=== PATIENT | male | born 1990 | race Caucasian/White ===

== ENCOUNTER 2016-12-15 23:30 | Emergency (ER) | payer SELFPAY ==
[2016-12-15 23:40] VITALS: BP 146/95
[2016-12-16] MEDS ORDERED: ACETAMINOPHEN 500 MG TABLET PO ONE (00:28)
--- NOTE | 2016-12-16 00:28 | ERNOTE ---
Upper Extremity HPI - Narrative Date of Service: 12/16/16 - General Extremities Pain Location: forearm: right Time Seen by Provider: 12/16/16 00:19 Source: patient Exam Limitations: no limitations - Immun/Allergies/Home Medications Immunizations: IMMUNIZATION HX Immunizations Up to Date Yes History of Influenza Vaccine No Hx Pneumococcal Vaccination No Allergies/Adverse Reactions: Allergies Allergy/AdvReac Type Severity Reaction Status Date / Time No Known Allergies Allergy Verified 12/15/16 23:40 Home Medications: HOME MEDICATIONS Naproxen [Naprosyn] 500 mg PO BID PRN #30 tablet 12/16/16 [Last Taken Unknown] - History of Present Illness Narrative: 26 year old that complaints of right forearm numbness and pain with extension of the digits. Typically plays video games for several hours when the pain started. Also complaints of a "lump" under his right testicle. Occurred: just prior to arrival Location of Incident: home Severity: severe Method of Injury: Reports: sports injury Modifying Factors - (Improves): Reports: rest Modifying Factors - (Worsens): Reports: movement Associated Symptoms: Reports: loss of power (rt arm) - forearm Other Injuries: Reports: none Review of Systems - Review of Systems Constitutional: Present: no symptoms reported EYE: Present: no symptoms reported ENT: Present: no symptoms reported Respiratory: Present: no symptoms reported Cardiology: Present: no symptoms reported Gastrointestinal/Abdominal: Present: no symptoms reported Genitourinary: Present: See HPI Musculoskeletal: Present: See HPI Skin: Present: no symptoms reported Neurological: Present: no symptoms reported Endocrine: Present: no symptoms reported - Patient's Past Medical History Patient History - Medical: No pertinent hx Patient History - Cardiac/Respiratory: No pertinent hx Patient History - Cancer: No Hx of Cancer Patient History - Surgical Procedures: Other Patient History - Other: None - Social History Living Situations: home Smoking Status: Current every day smoker Drug Use: marijuana - Immunizations Immunizations Up to Date: Yes Hx Pneumococcal Vaccination: No History of Influenza Vaccine: No Physical Exam - Physical Exam General Appearance: Present: alert Eye Exam: Normal inspection: bilateral Ears, Nose, Throat: Present: normal ENT inspection Neck: Present: normal inspection Respiratory: Present: no respiratory distress Cardiovascular/Chest: Present: regular rate, rhythm Gastrointestinal/Abdominal: Present: nontender, nondistended, soft Male Genitals Exam: Present: normal genitalia, other - small draining papulae at the posterior aspect of the right scrotum. Back Exam: Present: normal inspection Extremity Exam: Present: decreased range of motion - attempts at extending digits cuases pain at the extensor musculature., extremity edema - minimal at the extensor compartment, other - mild tenderness at the extensor compartment. NV intact distally. Neurological Exam: Present: alert, oriented, normal mood/affect ED Progress - Vital Signs Patient's Vital Signs:: I have reviewed the patient's vital signs. Vital Signs: Vital Signs 12/15/16 23:33 Temperature 36.3 C L Pulse Rate 109 H Respiratory 16 Rate Blood Pressure 146/95 O2 Sat by Pulse 96 Oximetry - Progress/Reassessment Chief Complaint: Upper Extremity Injury/Problem Departure Clinical Impression: Overuse injury, Papule - Departure Disposition: Home self-care Condition: Fair Instructions: Tendinitis and Tenosynovitis-SportsMed Print Language: [place] Island[place] Additional Instructions: Refrain from video games. Ice packs to the right forearm. Follow up with your doctor in 7-10 days. Prescriptions: Naproxen [Naprosyn] 500 mg PO BID PRN #30 tablet PRN Reason: Pain
== END 2016-12-16 01:00 | disposition home or self-care (01) ==
LOC: ER 23:30
PROC: 2W38X1Z Immobilization of Right Upper Extremity using Splint (ICD-10-PCS; principal; 2016-12-15)
DX: S69.81XA Other specified injuries of right wrist, hand and finger(s), initial encounter (principal); R23.8 Other skin changes; F17.200 Nicotine dependence, unspecified, uncomplicated; Y93.C2 Activity, hand held interactive electronic device; Y92.009 Unspecified place in unspecified non-institutional (private) residence as the place of occurrence of the external cause